=== PATIENT | female | born 1970 | race Two or more races ===

== ENCOUNTER 2018-12-29 19:32 | Emergency (ER) | payer SELFPAY ==
[~2018-12-29] VITALS: Ht 162.6 cm; Wt 79.4 kg
[2018-12-29] MEDS ORDERED: KETOROLAC TROMETH 30 MG/ML 1ML VIAL IV ONE (20:00)
[2018-12-29] MEDS ORDERED: ETOMIDATE (2MG/ML) 20ML VIAL IV ONE (20:45)
[2018-12-29 22:51] VITALS: BP 128/80
== END 2018-12-29 23:09 | disposition home or self-care (01) ==
LOC: EDBD 19:32 → ER 19:32
DX: S43.004A Unspecified dislocation of right shoulder joint, initial encounter (principal); S10.93XA Contusion of unspecified part of neck, initial encounter; S20.211A Contusion of right front wall of thorax, initial encounter; V09.9XXA Pedestrian injured in unspecified transport accident, initial encounter; Y93.89 Activity, other specified; Y99.8 Other external cause status; Y92.89 Other specified places as the place of occurrence of the external cause
CPT/HCPCS: 23650; 71045; 72125; 73030; 73060; 99152; 99285; J1885